=== PATIENT | male | born 1965 | race Caucasian/White ===

== ENCOUNTER 2017-09-14 07:33 | Emergency (ER) | payer OTHER ==
[2017-09-14 08:55] LABS: Potassium 3.9 mEq/L (3.6-5.0)
[2017-09-14 09:01] LABS: Albumin 4.3 g/dL (3.2-5.5); Bilirubin Direct 0.1 mg/dL (0-0.2); Bilirubin Total 0.5 mg/dL (0.3-1.2); Protein, Total 6.8 g/dL (6.0-8.3)
[2017-09-14 09:05] LABS: Absolute Lymphocytes (CBC) 1.9 K/uL (0.7-4.9); Absolute Monocytes 0.7 K/uL (0.1-1.3); Absolute Neutrophil 6.8 K/uL (1.8-8.0); Basophils % 0.7 % (0-1.3); Eosinophils % 3.5 % (0-4.4); Hematocrit 44.2 % (39.6-49.0); Lymphocytes % 19.6 % (15.3-44.8); MCH 31.7 pg (27.0-35.0); MCV 93.6 fL (80-100); MPV 7.6 fL (7.6-11.3); Monocytes % 7.2 % (3.3-12.3); RBC Red Blood Cell Count 4.72 M/uL (4.33-5.43)
[2017-09-14 09:07] LABS: Protime INR 1.06
--- NOTE | 2017-09-14 09:38 | RAD REPORT ---
EXAM DESCRIPTION: [place] Single View09/14/2017 8:25 am CLINICAL HISTORY: Chest pain COMPARISON: none FINDINGS: The lungs appear clear of acute infiltrate. The lungs are hyperaerated. The heart is norm al size IMPRESSION: Hyperaerated lungs may indicate COPD. No acute abnormality is displayed
--- NOTE | 2017-09-14 09:58 | ER ---
Nurse's Notes [facility] Name: George Whitaker Age: 52 yrs Sex: Male : 1965 Arrival Date: 09/14/2017 Time: 07:37 Bed 5 Private MD: Out, [facility] Diagnosis: Mononeuropathies of upper limb Presentation: 09/14 07:42 Presenting complaint: Patient states: Left lower arm and hand numbness and weakness hb that started suddenly at 11pm last night while working at computer. Hx COPD. Transition of care: patient was not received from another setting of care. Onset of symptoms was September 13, 2017 at 23:00. Care prior to arrival: None. 07:42 Method Of Arrival: Ambulatory hb 07:42 Acuity: SHELLEY 3 hb 08:14 Risk Assessment: Do you want to hurt yourself or someone else? Patient reports no ph desire to harm self or others. Initial Sepsis Screen: Does the patient meet any 2 criteria? No. Patient's initial sepsis screen is negative. Does the patient have a suspected source of infection? No. Patient's initial sepsis screen is negative. Historical: - Allergies: 07:45 Codeine; hb - Home Meds: 07:45 gabapentin 300 mg oral cap 2 caps nightly [Active]; Ativan 2 mg Oral tab 1 tab nightly hb [Active]; albuterol sulfate 90 mcg/actuation inhalation HFAA [Active]; - PMHx: 07:45 COPD; hb - PSHx: 07:45 back x2; Shoulder - RIGHT; hb - Immunization history:: Adult Immunizations up to date. - Social history:: Smoking status: Patient/guardian denies using tobacco, Patient uses alcohol, patient/guardian reports chronic longstanding heavy alcohol consumption. - Ebola Screening: : No symptoms or risks identified at this time. Screenin:14 Abuse screen: Denies threats or abuse. Denies injuries from another. Nutritional ph screening: No deficits noted. Tuberculosis screening: No symptoms or risk factors identified. Fall Risk None identified. Assessment: 08:15 General: Appears in no apparent distress. comfortable, Behavior is calm, cooperative, ph appropriate for age, Smells of alcohol. Pain: Denies pain. Neuro: Level of Consciousness is awake, alert, obeys commands, Oriented to person, place, time, situation, Moves all extremities. Full function Gait is steady, Facial symmetry appears normal, Pupils are PERRLA, Reports numbness in dorsal aspect of left forearm, left wrist and left hand Denies dizziness, headache. Cardiovascular: Denies chest pain, lightheadedness, shortness of breath, Capillary refill < 3 seconds Patient's skin is warm and dry. Respiratory: Airway is patent Respiratory effort is even, unlabored. GI: No signs and/or symptoms were reported involving the gastrointestinal system. Derm: Skin is intact, is healthy with good turgor, Skin is pink, warm \T\ dry. Musculoskeletal: Circulation, motion, and sensation intact. Range of motion: intact in all extremities. 09:04 Reassessment: Patient appears in no apparent distress at this time. No changes from previously documented assessment. Patient and/or family updated on plan of care and expected duration. Pain level reassessed. Patient is alert, oriented x 3, equal unlabored respirations, skin warm/dry/pink. 09:47 Reassessment: Patient appears in no apparent distress at this time. Patient and/or ph family updated on plan of care and expected duration. Pain level reassessed. Patient is alert, oriented x 3, equal unlabored respirations, skin warm/dry/pink. PT ambulated to restroom, gait steady, denies SOB or dizziness, urine sample obtained. 10:08 Reassessment: Patient appears in no apparent distress at this time. Patient and/or ph family updated on plan of care and expected duration. Pain level reassessed. Patient is alert, oriented x 3, equal unlabored respirations, skin warm/dry/pink. Pt instructed to follow up with neuro, discharged home. Vital Signs: 07:41 BP 149 / 96; Pulse 88; Resp 16; Temp 98; Pulse Ox 96% on R/A; Weight 92.99 kg; Height 5 hb ft. 11 in. (180.34 cm); Pain 0/10; 08:45 BP 142 / 89; Pulse 76; Resp 18; Pulse Ox 99% on R/A; ph 09:48 BP 132 / 82; Pulse 73; Resp 18; Pulse Ox 98% on R/A; ph 07:41 Body Mass Index 28.59 (92.99 kg, 180.34 cm) hb ED Course: 07:37 Patient arrived in ED. sb2 07:43 Triage completed. hb 07:45 Arm band placed on right wrist. hb 07:48 Out, of Town is Private Physician. sb2 07:48 Peña Valdez MD is Attending Physician. gs 07:56 EKG done, by ED staff, reviewed by Peña Valdez MD. em1 08:10 Initial lab(s) drawn, by me, sent to lab. Inserted saline lock: 20 gauge in right sg forearm, using aseptic technique. Blood collected. 08:13 Marianela Whitaker RN is Primary Nurse. ph 08:15 Patient has correct armband on for positive identification. Placed in gown. Bed in low ph position. Call light in reach. Side rails up X 1. Pulse ox on. NIBP on. Warm blanket given. 08:21 X-ray completed. Portable x-ray completed in exam room. jb2 08:22 XRAY Chest (1 view) In Process Unspecified. EDMS 09:51 No provider procedures requiring assistance completed. ph 09:57 Kendrick Carrasco MD is Referral Physician. gs 10:11 IV discontinued, intact, bleeding controlled, No redness/swelling at site. Pressure ph dressing applied. Administered Medications: No medications were administered Outcome: 09:58 Discharge ordered by MD. gs 10:10 Discharged to home ambulatory. ph 10:10 Condition: good 10:10 Discharge instructions given to patient, Instructed on discharge instructions, follow up and referral plans. medication usage, Demonstrated understanding of instructions, follow-up care, medications. 10:11 Patient left the ED. ph Signatures: Dispatcher [employer] EDMS Stephan Gardiner RN RN James Espinal jb2 Herrera Loaiza em1 Marianela Whitaker RN RN Karina Valladares RN RN Peña Valdez MD MD Saima Biswas sb2
--- NOTE | 2017-09-14 09:59 | EDPHYS ---
Physician Documentation [facility] Name: George Whitaker Age: 52 yrs Sex: Male : 1965 Arrival Date: 09/14/2017 Time: 07:37 Bed 5 Private MD: Out, [facility] ED Physician Peña Valdez HPI: 09/14 08:51 This 52 yrs old Male presents to ER via Ambulatory with complaints of gs Numbness Of Hand. 08:51 The patient presents to the emergency department with weakness of the left wrist, gs paresthesias of the left wrist. Onset: The symptoms/episode began/occurred gradually, at 11:30. Context: occurred while the patient was lying down. Associated signs and symptoms: Pertinent negatives: altered mental status, dizziness, headache, neck stiffness, visual field changes, loss of vision. Severity of symptoms: At their worst the symptoms were moderate in the emergency department the symptoms are unchanged. The patient has experienced a previous episode. The patient has not recently seen a physician. Historical: - Allergies: 07:45 Codeine; hb - Home Meds: 07:45 gabapentin 300 mg oral cap 2 caps nightly [Active]; Ativan 2 mg Oral tab 1 tab nightly hb [Active]; albuterol sulfate 90 mcg/actuation inhalation HFAA [Active]; - PMHx: 07:45 COPD; hb - PSHx: 07:45 back x2; Shoulder - RIGHT; hb - Immunization history:: Adult Immunizations up to date. - Social history:: Smoking status: Patient/guardian denies using tobacco, Patient uses alcohol, patient/guardian reports chronic longstanding heavy alcohol consumption. - Ebola Screening: : No symptoms or risks identified at this time. ROS: 08:51 All other systems are negative. gs Exam: 08:51 Head/Face: Normocephalic, atraumatic. Eyes: Pupils equal round and reactive to light, gs extra-ocular motions intact. Lids and lashes normal. Conjunctiva and sclera are non-icteric and not injected. Cornea within normal limits. Periorbital areas with no swelling, redness, or edema. ENT: Nares patent. No nasal discharge, no septal abnormalities noted. Tympanic membranes are normal and external auditory canals are clear. Oropharynx with no redness, swelling, or masses, exudates, or evidence of obstruction, uvula midline. Mucous membranes moist. Neck: Trachea midline, no thyromegaly or masses palpated, and no cervical lymphadenopathy. Supple, full range of motion without nuchal rigidity, or vertebral point tenderness. No Meningismus. Chest/axilla: Normal chest wall appearance and motion. Nontender with no deformity. No lesions are appreciated. Cardiovascular: Regular rate and rhythm with a normal S1 and S2. No gallops, murmurs, or rubs. Normal PMI, no JVD. No pulse deficits. Respiratory: Lungs have equal breath sounds bilaterally, clear to auscultation and percussion. No rales, rhonchi or wheezes noted. No increased work of breathing, no retractions or nasal flaring. Abdomen/GI: Soft, non-tender, with normal bowel sounds. No distension or tympany. No guarding or rebound. No evidence of tenderness throughout. Back: No spinal tenderness. No costovertebral tenderness. Full range of motion. Skin: Warm, dry with normal turgor. Normal color with no rashes, no lesions, and no evidence of cellulitis. 08:51 Constitutional: The patient appears alert, awake. 08:51 ECG was reviewed by the Attending Physician. 08:51 Musculoskeletal/extremity: Pulses: are normal with no appreciated deficits. 08:51 Neuro: Motor: unable to extend left wrist, decreased sensation dorsum left hand, decrease flexion fingers and adduction,. Vital Signs: 07:41 BP 149 / 96; Pulse 88; Resp 16; Temp 98; Pulse Ox 96% on R/A; Weight 92.99 kg; Height 5 hb ft. 11 in. (180.34 cm); Pain 0/10; 08:45 BP 142 / 89; Pulse 76; Resp 18; Pulse Ox 99% on R/A; ph 09:48 BP 132 / 82; Pulse 73; Resp 18; Pulse Ox 98% on R/A; ph 07:41 Body Mass Index 28.59 (92.99 kg, 180.34 cm) hb MDM: 07:52 Patient medically screened. gs 08:51 Data reviewed: vital signs, nurses notes. Response to treatment: the patient's symptoms gs have mildly improved after treatment, and as a result, I will discharge patient. 09/14 07:55 Order name: Basic Metabolic Panel; Complete Time: 09:56 gs 09/14 07:55 Order name: CBC with Diff; Complete Time: 09:56 09/14 07:55 Order name: CPK; Complete Time: 09:56 09/14 07:55 Order name: LFT's; Complete Time: 09:56 09/14 07:55 Order name: Magnesium; Complete Time: 09:56 09/14 07:55 Order name: PT-INR; Complete Time: 09:56 09/14 07:55 Order name: Troponin (emerg Dept Use Only); Complete Time: 09:56 09/14 07:55 Order name: XRAY Chest (1 view); Complete Time: 09:56 09/14 07:55 Order name: EKG; Complete Time: 07:56 09/14 07:55 Order name: Cardiac monitoring; Complete Time: 08:16 09/14 07:55 Order name: EKG - Nurse/Tech; Complete Time: 07:56 09/14 07:55 Order name: IV Saline Lock; Complete Time: 08:16 09/14 07:55 Order name: Labs collected and sent; Complete Time: 08:16 09/14 09:58 Order name: Urine Dipstick--Ancillary (enter results) ag 09/14 07:55 Order name: O2 Per Protocol; Complete Time: 08:17 09/14 07:55 Order name: O2 Sat Monitoring; Complete Time: 08:17 gs EC:51 Rate is 81 beats/min. Rhythm is regular. QRS interval is normal. QT interval is normal. gs T waves are Normal. No ST changes noted. Clinical impression: Normal ECG. Interpreted by me. Administered Medications: No medications were administered Disposition: 09/14/17 09:58 Discharged to Home. Impression: Mononeuropathies of upper limb. - Condition is Stable. - Discharge Instructions: Radial Nerve Palsy. - Medication Reconciliation Form, Thank You Letter, Antibiotic Education, Prescription Opioid Use form. - Follow up: Kendrick Carrasco MD; When: 2 - 3 days; Reason: Re-evaluation by your physician. Signatures: Dispatcher [employer] EDMarianela Thomas RN RN ph Baxter, Heather, RN RN hb Starr, Gregory, MD MD gs Corrections: (The following items were deleted from the chart) 10:11 09:58 09/14/2017 09:58 Discharged to Home. Impression: Mononeuropathies of upper limb. ph Condition is Stable. Forms are Medication Reconciliation Form, Thank You Letter, Antibiotic Education, Prescription Opioid Use. Follow up: Kendrick Carrasco; When: 2 - 3 days; Reason: Re-evaluation by your physician. gs
[2017-09-14 11:51] LABS: Urine Blood NEGATIVE (NEG); Urine Glucose NEGATIVE (NEG); Urine Protein NEGATIVE (NEG); Urine Specific Gravity 1.015 (1.005-1.030)
--- NOTE | 2017-09-14 15:02 | EKG ---
Test Date: 2017-09-14 Test Time: 07:51:50 [employer] Lecturer: TERENCE MEASUREMENT RESULTS: Intervals: Rate: 81 VT: 148 QRSD: 82 QT: 360 QTc: 418 [place]: P: 69 VT: 148 QRS: 73 T: 60 INTERPRETIVE STATEMENTS: Normal sinus rhythm Normal ECG No previous ECG available for comparison Electronically Signed On 09-14-17 14:59:08 CDT by Maurilio Pena
== END 2017-09-14 10:11 | disposition home or self-care (01) ==
LOC: ER 07:33
DX: G56.92 Unspecified mononeuropathy of left upper limb (principal); J44.9 Chronic obstructive pulmonary disease, unspecified; Z88.5 Allergy status to narcotic agent
CPT/HCPCS: 36415; 71045; 80048; 80076; 81003; 82550; 83735; 84484; 85025; 85610; 93005; 99284